=== PATIENT | male | born 1945 | race Caucasian/White ===

== ENCOUNTER → 2018-10-12 | Outpatient (CLI) | payer OTHER ==
[~2018-10-12] MED LIST: CEPH-264 PO; MUPI22OI2 TP; ORPH100T PO
--- NOTE | 2018-10-12 11:31 | RAD ---
MR#: [id number] Date of Study: 10/12/2018 Ordering Physician: KATE ROY Referring Physician: NUZHAT SAWYER Tech: APPROVED REPORT Test Type: Exercise Stress Nurse/Tech: Maude FOX Test Indications: CAD Cardiac History: CABG in 2003 x5, HTN, See EMR Medications: See EMR Medical History: See EMR Resting ECG: SR Resting Heart Rate: 75 bpm Resting Blood Pressure: 158/63mmHg Pretest Chest Pain: No chest pain Nurse/Tech Notes Lungs CTA. Heart tones regular. Consent: The procedure was explained to the patient in lay terms. Informed consent was witnessed. You eout was entered into Chat[employer] (ChatAnd). History and Stress Test performed by Niels Ferguson, RT (R) (N) POST EXERCISE Reason for Termination: Reached target heart rate Target HR: Yes Max HR: 138 bpm 110% of Maximum Predicted HR: 125 bpm Exercise duration: 12:00 min:sec, 4 Stage Exercise capacity: 13.4METs Max Blood Pressure: 180/64mmHg Blood Pressure response to exercise: Abnormal blood pressure response during stress. Chest Pain: No. Arrhythmia: No. ST Change: No. INTERPRETATION Stress EKG Conclusion: No evidence of stress induced EKG changes. Conclusion 1. Resting EKG without acute abnormalities 2. Normal exercise capacity with 13 Mets achieved. 3. Normal BP/HR response. 4. Low risk study Signed by : Kate Roy, Electronically Approved : 10/12/2018 11:30:59
--- NOTE | 2018-10-12 11:35 | CARD ---
MR#: [id number] Date of Study: 10/12/2018 Ordering Physician: KATE DUARTE, Referring Physician: KATE DUARTE, Tech: Jayda Downey ALISSON APPROVED REPORT EXAM: Two-dimensional and M-mode echocardiogram with Doppler and color Doppler. Other Information Quality : AverageHR: 73bpm Rhythm : NSR INDICATION CAD 2D DIMENSIONS RVDd3.4 (2.9-3.5cm)Left Atrium(2D)4.6 (1.6-4.0cm) IVSd1.0 (0.7-1.1cm)Aortic Root(2D)3.0 (2.0-3.7cm) LVDd4.4 (3.9-5.9cm)LVOT Diameter2.0 (1.8-2.4cm) PWd1.0 (0.7-1.1cm)LVDs2.8 (2.5-4.0cm) FS (%) 37.5 %SV60.4 ml LVEF(%)67.7 (>50%) M-Mode DIMENSIONS Left Atrium(MM)4.27 (2.5-4.0cm)Aortic Root2.92 (2.2-3.7cm) Aortic Valve AoV Peak Paul.152.8cm/sAoV VTI34.9cm AO Peak GR.9.3mmHgLVOT Peak Paul.134.3cm/s AO Mean GR.5mmHgAVA (VMAX)2.81cm2 LYNNE (VTI)2.80cm2 Mitral Valve MV E Ufbfjpxh364.9cm/sMV DECEL JKAB987vi MV A Cwgrmsoq15.5cm/sE/A Ratio2.0 MV A Bouqjlsw320tc Pulmonary Valve PV Peak Sofvrlex305.0cm/s Tricuspid Valve TR P. Ueovnaht785zb/sRAP KVMDSCPX2iuYi TR Peak Gr.08nbNePSFA88wrEb LEFT VENTRICLE The left ventricle is normal size. There is normal left ventricular wall thickness. The left ventricu lar systolic function is normal and the ejection fraction is within normal range. The Ejection Fracti on is 55-60%. There is normal LV segmental wall motion. Transmitral Doppler flow pattern is Grade II- pseudonormal filling dynamics. RIGHT VENTRICLE The right ventricle is normal size. There is normal right ventricular wall thickness. The right ventr icular systolic function is normal. ATRIA The left atrium is moderately dilated. The right atrium is mildly dilated. The interatrial septum is intact with no evidence for an atrial septal defect or patent foramen ovale as noted on 2-D or Dopple r imaging. AORTIC VALVE The aortic valve is mildly thickened. The aortic valve is trileaflet. Doppler and Color Flow revealed no significant aortic regurgitation. There is no significant aortic valvular stenosis. MITRAL VALVE The mitral valve is normal in structure and function. There is no evidence of mitral valve prolapse. There is no mitral valve stenosis. Doppler and Color-flow revealed trace mitral regurgitation. TRICUSPID VALVE The tricuspid valve is normal in structure and function. Doppler and Color Flow revealed trace tricus pid regurgitation.There is mild pulmonary hypertension.The PA pressure was estimated at 31 mmHg. Ther e is no tricuspid valve prolapse or vegetation. There is no tricuspid valve stenosis. PULMONIC VALVE Doppler and Color Flow revealed no pulmonic valvular regurgitation. There is no pulmonic valvular star nosis. GREAT VESSELS The aortic root is normal in size. The ascending aorta is normal in size. The IVC is normal in size a nd collapses >50% with inspiration. PERICARDIAL EFFUSION There is no evidence of significant pericardial effusion. Critical Notification Critical Value: No <Conclusion> The left ventricular systolic function is normal and the ejection fraction is within normal range. Th e Ejection Fraction is 55-60%. Doppler and Color Flow revealed trace tricuspid regurgitation.There is mild pulmonary hypertension.Th e PA pressure was estimated at 31 mmHg. There is normal LV segmental wall motion. Signed by : Kate Duarte, Electronically Approved : 10/12/2018 11:35:13
== END | disposition home or self-care (01) ==
LOC: NM 08:26
PROVIDERS: ATTEND Internal Medicine Cardiovascular Disease
DX: I25.10 Atherosclerotic heart disease of native coronary artery without angina pectoris (principal); I27.20 Pulmonary hypertension, unspecified; I10 Essential (primary) hypertension
CPT/HCPCS: 93017; 93306

== ENCOUNTER 2018-12-27 17:16 | Emergency (ER) | payer OTHER ==
[~2018-12-27] VITALS: Ht 167.6 cm; Wt 84.4 kg
[2018-12-27 17:45] LABS: BASO # 0.1 x10^3/uL (0.0-0.2); BASO % 1 % (0-3); EOS # 0.5 x10^3/uL (0.0-0.7); EOS % 5 % (0-3); HEMATOCRIT 44.8 % (39.0-53.0); LYMPH # 2.3 x10^3/uL (1.0-4.8); LYMPH % 21 % (24-48); MEAN CORPUSCULAR HEMOGLOBIN 33 pg (25-35); MEAN CORPUSCULAR HGB CONC 34 g/dL (31-37); MEAN CORPUSCULAR VOLUME 97 fL (79-100); MONO % 9 % (0-9); NEUT # 7.3 x10^3uL (1.8-7.7); NEUT % 65 % (31-73); PLATELET COUNT 186 x10^3/uL (140-400); RED BLOOD COUNT 4.62 x10^6/uL (4.30-5.70); RED CELL DISTRIBUTION WIDTH 13.2 % (11.5-14.5); WHITE BLOOD COUNT 11.1 x10^3/uL (4.0-11.0)
[2018-12-27 17:58] LABS: CALCIUM 9.1 mg/dL (8.5-10.1); CREATININE 1.1 mg/dL (0.7-1.3); GFR 65.8; POTASSIUM 3.9 mmol/L (3.5-5.1)
[2018-12-27] MEDS ORDERED: fentaNYL PF VIAL 100 MCG/2 ML VIAL IV ONE (18:00)
[2018-12-27] MEDS ORDERED: IV NORMAL SALINE 500ML BAG 500 ML IV ONE (18:00)
[2018-12-27] MEDS ORDERED: ONDANSETRON PF 4 MG/2 ML VIAL. IV ONE (18:00)
[2018-12-27] MEDS ORDERED: DIPHTH,PERTUSS(ACELL),TET TOX 0.5 ML DISP.SYRIN. VAX IM ONE (18:00)
[2018-12-27 18:02] LABS: ALBUMIN 3.9 g/dL (3.4-5.0); TOTAL BILIRUBIN 0.7 mg/dL (0.2-1.0); TOTAL PROTEIN 7.8 g/dL (6.4-8.2)
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
[2018-12-27] MEDS ORDERED: NEOMY/BACITR/POLYMYXIN OINT PACKET. TP ONE (18:15)
[2018-12-27] MEDS ORDERED: LIDOCAINE 2%/EPI 1:100,000 20 ML VIAL. IJ ONE ×2 (18:15→20:00)
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
[2018-12-27] MEDS ORDERED: MUPIROCIN 2 % TOPICAL CREAM 30GM TUBE. TP ONE (21:45)
[2018-12-27] MEDS ORDERED: MUPI22OI2 TP (21:53)
[2018-12-27] MEDS ORDERED: CEPH-264 PO (21:53)
[2018-12-27] MEDS ORDERED: ORPH100T PO (21:53)
[2018-12-27] MEDS ORDERED: KETOROLAC 15 MG/ML VIAL. IV ONE (22:00)
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
[2018-12-27 22:08] VITALS: BP 165/88
== END 2018-12-27 22:08 | disposition home or self-care (01) ==
LOC: ER 17:16
DX: S51.011A Laceration without foreign body of right elbow, initial encounter (principal); S81.012A Laceration without foreign body, left knee, initial encounter; S81.011A Laceration without foreign body, right knee, initial encounter; E78.00 Pure hypercholesterolemia, unspecified; I11.0 Hypertensive heart disease with heart failure; I50.9 Heart failure, unspecified; Z95.1 Presence of aortocoronary bypass graft; V19.88XA Pedal cyclist (driver) (passenger) injured in other specified transport accidents, initial encounter; Y93.89 Activity, other specified; Y92.488 Other paved roadways as the place of occurrence of the external cause; Y99.8 Other external cause status
CPT/HCPCS: 12031; 13121; 13122; 36415; 70450; 71045; 72125; 72170; 73080; 73562; 80053; 82550; 85025; 90471; 90715; 96365; 96375; 99285; J0696; J1885; J2405; J3010; J3490; J7040; 96361

== ENCOUNTER → 2020-06-15 | Outpatient (CLI) | payer MEDICARE, OTHER | LOC: US 09:10 | PROVIDERS: ATTEND Internal Medicine Cardiovascular Disease | DX: I25.10 Atherosclerotic heart disease of native coronary artery without angina pectoris (principal); R09.89 Other specified symptoms and signs involving the circulatory and respiratory systems | CPT/HCPCS: 76770; 93880 ==